=== PATIENT | female | born 1930 | race Caucasian/White ===

== ENCOUNTER 2018-06-12 15:39 | Emergency (ER) | payer OTHER ==
[2018-06-12] MEDS ORDERED: NS 1,000 ML IV ONE ×2 (16:08→16:59)
--- NOTE | 2018-06-12 16:08 | EDPHY ---
H & P Stated Complaint: N/V/D Time Seen by Provider: 06/12/18 16:08 HPI/ROS: HPI CHIEF COMPLAINT: Nausea vomiting diarrhea. HISTORY OF PRESENT ILLNESS: 87-year-old female, visiting from [facility], presents emergency room nausea vomiting diarrhea. The patient states she had sick contacts at home with the same complaints. She started vomiting last night multiple episodes. Multiple episodes of watery diarrhea. No blood. No fever. Denies chest pain or shortness of breath. Denies global weakness. Denies abdominal pain.. Due to fly home today to [facility]. However due to nausea vomiting diarrhea she decided come the emergency room. Denies recent antibiotics. Past Medical History: Hypertension, history of CVA Past Surgical History: Denies recent surgery Social History: Denies drugs alcohol tobacco. From [facility]. Family History: Noncontributory ROS REVIEW OF SYSTEMS: 10 Systems were reviewed and negative with the exception of the elements mentioned in the history of present illness. Exam Constitutional nontoxic no acute distress triage nursing summary reviewed, vital signs reviewed, awake/alert. Vital signs stable Eyes normal conjunctivae and sclera, EOMI, PERRLA. HENT normal inspection, atraumatic, dry mucus membranes, no epistaxis, neck supple/ no meningismus, no raccoon eyes. Respiratory clear to auscultation bilaterally, normal breath sounds, no respiratory distress, no wheezing. Cardiovascular rate normal, regular rhythm, no murmur, no edema, distal pulses normal. Gastrointestinal soft, non-tender, no rebound, no guarding, normal bowel sounds, no distension, no pulsatile mass. Genitourinary no CVA tenderness. Musculoskeletal no midline vertebral tenderness, full range of motion, no calf swelling, no tenderness of extremities, no meningismus, good pulses, neurovascularly intact. Skin pink, warm, & dry, no rash, skin atraumatic. Neurologic awake, alert and oriented x 3, AAOx3, moves all 4 extremities equally, motor intact, sensory intact, CN II-XII intact, normal cerebellar, normal vision, normal speech. Psychiatric normal mood/affect. Heme/Lymph/Immune no lymphadenopathy. Differential Diagnosis: Includes but is not limited to in a particular order dehydration, electrolyte disturbance, acute GI illness, diarrheal illness, infectious colitis. Medical Decision Making: Plan for this patient she appears very well nontoxic no acute distress stable vital signs, plan for IV hydration, Zofran for nausea, basic blood work, re-evaluate. Her abdomen is soft nontender. Re-evaluation: BUN is 56 creatinine 1.1. Patient appears dry on exam. Patient received 1 L fluid. Plan for 2nd L fluid re-evaluation. 1829: Patient re-evaluate this time she is requesting discharge she reports to me she feels much better. She denies any abdominal pain fever or vomiting. She has not had any stool here or vomiting. She has received 2 L of fluid. Patient requesting discharge. Return precautions discussed with her she understands return emergency room she develops worsening abdominal pain, fever, vomiting, bloody stools, not doing well. Source: Patient - Personal History Current Tetanus/Diphtheria Vaccine: Unsure - Medical/Surgical History Hx Asthma: No Hx Chronic Respiratory Disease: No Hx Diabetes: No Hx Cardiac Disease: No Hx Renal Disease: No Hx Cirrhosis: No Hx Alcoholism: No Other PMH: HTN - Social History Smoking Status: Former smoker Constitutional: Initial Vital Signs Temperature (C) 36.3 C 06/12/18 15:47 Heart Rate 102 H 06/12/18 15:47 Respiratory Rate 18 06/12/18 15:47 Blood Pressure 132/79 H 06/12/18 15:47 O2 Sat (%) 95 06/12/18 15:47 O2 Delivery Mode Room Air Allergies/Adverse Reactions: Penicillins Allergy (Verified 06/12/18 15:52) Home Medications: Medication Instructions Recorded Cardene 06/12/18 Valsartan 06/12/18 Medical Decision Making - Data Points Laboratory Results: Laboratory Results 06/12/18 16:25 06/12/18 16:25 06/12/18 06/12/18 06/12/18 17:20 16:25 16:25 WBC RBC Hgb Hct MCV MCH MCHC RDW Plt Count MPV Neut % (Auto) Lymph % (Auto) [place] % (Auto) Eos % (Auto) Baso % (Auto) Nucleat RBC Rel Count Absolute Neuts (auto) Absolute Lymphs (auto) Absolute Monos (auto) Absolute Eos (auto) Absolute Basos (auto) Absolute Nucleated RBC Immature Gran % Immature Gran # RBC/WBC/PLT Morphology Platelet Estimate PT 13.3 SEC SEC (12.0-15.0) INR 0.99 (0.83-1.16) APTT 24.3 SEC SEC (23.0-38.0) VBG Lactic Acid Sodium 137 mEq/L mEq/L (135-145) Potassium 4.3 mEq/L mEq/L (3.5-5.2) Chloride 103 mEq/L mEq/L (97-110) Carbon Dioxide 21 mEq/l L mEq/l (22-31) Anion Gap 13 mEq/L mEq/L (6-14) BUN 56 mg/dL H mg/dL (7-23) Creatinine 1.1 mg/dL H mg/dL (0.6-1.0) Estimated GFR 47 Glucose 126 mg/dL H mg/dL (70-100) Calcium 8.8 mg/dL mg/dL (8.5-10.4) Total Bilirubin 0.7 mg/dL mg/dL (0.1-1.4) Conjugated Bilirubin 0.1 mg/dL mg/dL (0.0-0.5) Unconjugated Bilirubin 0.6 mg/dL mg/dL (0.0-1.1) AST 26 IU/L IU/L (14-46) ALT 29 IU/L IU/L (9-52) Alkaline Phosphatase 81 IU/L IU/L (38-126) Total Protein 7.2 g/dL g/dL (6.3-8.2) Albumin 4.3 g/dL g/dL (3.5-5.0) Lipase 81 IU/L IU/L (23-300) Urine Color YELLOW Urine Appearance CLEAR Urine pH 5.0 (5.0-7.5) Ur Specific [place] 1.023 (1.002-1.030) Urine Protein NEGATIVE (NEGATIVE) Urine Ketones NEGATIVE (NEGATIVE) Urine Blood NEGATIVE (NEGATIVE) Urine Nitrate NEGATIVE (NEGATIVE) Urine Bilirubin NEGATIVE (NEGATIVE) Urine Urobilinogen NEGATIVE EU EU (0.2-1.0) Ur Leukocyte Esterase NEGATIVE (NEGATIVE) Urine Glucose NEGATIVE (NEGATIVE) 06/12/18 06/12/18 16:25 16:25 WBC 10.17 10^3/uL H 10^3/uL (3.80-9.50) RBC 4.86 10^6/uL 10^6/uL (4.18-5.33) Hgb 14.7 g/dL g/dL (12.6-16.3) Hct 44.0 % % (38.0-47.0) MCV 90.5 fL fL (81.5-99.8) MCH 30.2 pg pg (27.9-34.1) MCHC 33.4 g/dL g/dL (32.4-36.7) RDW 14.9 % % (11.5-15.2) Plt Count 265 10^3/uL 10^3/uL (150-400) MPV 10.0 fL fL (8.7-11.7) Neut % (Auto) 92.6 % H % (39.3-74.2) Lymph % (Auto) 3.4 % L % (15.0-45.0) [place] % (Auto) 3.3 % L % (4.5-13.0) Eos % (Auto) 0.1 % L % (0.6-7.6) Baso % (Auto) 0.2 % L % (0.3-1.7) Nucleat RBC Rel Count 0.0 % % (0.0-0.2) Absolute Neuts (auto) 9.42 10^3/uL H 10^3/uL (1.70-6.50) Absolute Lymphs (auto) 0.35 10^3/uL L 10^3/uL (1.00-3.00) Absolute Monos (auto) 0.34 10^3/uL 10^3/uL (0.30-0.80) Absolute Eos (auto) 0.01 10^3/uL L 10^3/uL (0.03-0.40) Absolute Basos (auto) 0.02 10^3/uL 10^3/uL (0.02-0.10) Absolute Nucleated RBC 0.00 10^3/uL 10^3/uL (0-0.01) Immature Gran % 0.4 % % (0.0-1.1) Immature Gran # 0.04 10^3/uL 10^3/uL (0.00-0.10) RBC/WBC/PLT Morphology TNP Platelet Estimate TNP PT INR APTT VBG Lactic Acid 1.6 mmol/L mmol/L (0.7-2.1) Sodium Potassium Chloride Carbon Dioxide Anion Gap BUN Creatinine Estimated GFR Glucose Calcium Total Bilirubin Conjugated Bilirubin Unconjugated Bilirubin AST ALT Alkaline Phosphatase Total Protein Albumin Lipase Urine Color Urine Appearance Urine pH Ur Specific [place] Urine Protein Urine Ketones Urine Blood Urine Nitrate Urine Bilirubin Urine Urobilinogen Ur Leukocyte Esterase Urine Glucose Medications Given: Discontinued Medications Sodium Chloride (Ns) 1,000 mls @ 0 mls/hr IV EDNOW ONE; Wide Open PRN Reason: Protocol Stop: 06/12/18 16:09 Last Admin: 06/12/18 16:24 Dose: 1,000 mls Sodium Chloride (Ns) 1,000 mls @ 0 mls/hr IV ONCE ONE PRN Reason: Wide Open Stop: 06/12/18 17:00 Last Admin: 06/12/18 17:19 Dose: 1,000 mls Ondansetron HCl (Zofran) 4 mg IVP EDNOW ONE Stop: 06/12/18 16:26 Last Admin: 06/12/18 16:29 Dose: 4 mg Departure - Departure Disposition: Home, Routine, Self-Care Clinical Impression: Vomiting, Diarrhea Condition: Good Instructions: Dehydration (ED), Acute Nausea and Vomiting (ED), Acute Diarrhea (ED) Referrals: NONE *PRIMARY CARE P,. [Primary Care Provider] - As per Instructions Stand Alone Forms: Airline Excuse
[2018-06-12] MEDS ORDERED: ONDANSETRON 4 MG/2 ML VIAL IVP ONE (16:25)
[2018-06-12 16:36] LABS: PLATELET COUNT 265 10^3/uL (150-400)
[2018-06-12 16:45] LABS: INR 0.99 (0.83-1.16); PROTIME(PATIENT) 13.3 SEC (12.0-15.0)
[2018-06-12 18:15] VITALS: BP 116/75
[2018-06-12] MEDS ORDERED: ONDANSETRON 4MG PREPACK#2 BTL TAKEHOME ONE ×2 (18:30→18:35)
== END 2018-06-12 18:40 | disposition home or self-care (01) ==
DX: R11.2 Nausea with vomiting, unspecified (principal); R19.7 Diarrhea, unspecified; E86.9 Volume depletion, unspecified; I10 Essential (primary) hypertension
CPT/HCPCS: 96374; J2405